=== PATIENT | female | born 1950 | race Caucasian/White ===

== ENCOUNTER 2023-02-13 21:00 | Emergency (ER) | payer BC, OTHER ==
[~2023-02-13] VITALS: Ht 149.9 cm; Wt 60.8 kg
--- NOTE | 2023-02-13 21:05 | NUR ---
BIBA TO BED #11
[2023-02-13 21:20] VITALS: BP 150/86; PULSE 110; RESP 24; TEMP 98.2; O2SAT 96
--- NOTE | 2023-02-13 21:22 | NUR ---
PT FROM [facility] FOR ANXIETY, SOB HX ANXIETY
[2023-02-13] MEDS ORDERED: LORazepam 2 MG/ML VIAL IVP ONE (21:35)
--- NOTE | 2023-02-13 22:00 | NUR ---
PT WENT TO THE RESTROOM
--- NOTE | 2023-02-13 22:01 | NUR ---
URINE TO LAB
--- NOTE | 2023-02-13 22:16 | NUR ---
X RAY AT THE BESIDE
[2023-02-13 22:34] LABS: BASOPHILS % (AUTO) 0.4 % (0.0-2.0); EOSINOPHILS # (AUTO) 0.1 K/uL (0-0.4); EOSINOPHILS % (AUTO) 2.1 % (0.0-4.0); HEMATOCRIT 37.1 % (36-48); HEMOGLOBIN 12.7 g/dL (12.0-16.0); LYMPHOCYTES # (AUTO) 0.9 K/uL (2.5-16.5); LYMPHOCYTES % (AUTO) 28.6 % (20.5-51.1); MEAN CORPUSCULAR HEMOGLOBIN 37 pg (27-31); MEAN CORPUSCULAR HGB CONC 34 g/dL (33-37); MEAN CORPUSCULAR VOLUME 107.8 fL (80-94); MONOCYTES # (AUTO) 0.2 K/uL (0.8-1.0); MONOCYTES % (AUTO) 6.8 % (1.7-9.3); NEUTROPHILS # (AUTO) 2.1 K/uL (1.8-7.7); NEUTROPHILS % (AUTO) 62.1 % (42.2-75.2); PLATELET COUNT (AUTO) 505 K/uL (140-450); RED BLOOD CELL COUNT(AUTO) 3.44 MIL/uL (4.20-5.40); RED CELL DISTRIBUTION WIDTH 16.9 % (11.6-13.7); WHITE BLOOD COUNT (AUTO) 3.3 K/uL (4.8-10.8)
[2023-02-13 23:05] LABS: ALBUMIN 4.4 g/dL (3.4-5.0); ANION GAP 16.4 (8-16); CARBON DIOXIDE 25.8 mmol/L (21-32); CREATININE 0.9 mg/dL (0.6-1.3); POTASSIUM 4.2 mmol/L (3.5-5.1); TOTAL BILIRUBIN 0.6 mg/dL (0.0-1.0)
[2023-02-14] MEDS ORDERED: TRAZ-343 PO (00:38)
[2023-02-14 00:43] VITALS: BP 150/86; PULSE 110; RESP 24; TEMP 98.2; O2SAT 96
--- NOTE | 2023-02-14 01:16 | NUR ---
Patient discharged with v/s stable. Written and verbal after care instructions given and explained. Patient alert, oriented and verbalized understanding of instructions. Ambulatory with steady gait. All questions addressed prior to discharge. ID band removed. Patient advised to follow up with PMD. Rx of TRAZADONE given. Patient educated on indication of medication including possible reaction and side effects. Opportunity to ask questions provided and answered.
== END 2023-02-14 01:16 | disposition home or self-care (01) ==
LOC: MED 21:00
DX: F41.1 Generalized anxiety disorder (principal); R06.02 Shortness of breath; G47.00 Insomnia, unspecified; E78.5 Hyperlipidemia, unspecified; Z88.0 Allergy status to penicillin; Z79.899 Other long term (current) drug therapy
CPT/HCPCS: 36415; 71045; 80053; 81002; 83880; 84484; 85025; 93005; 96374; 99285; J2060